=== PATIENT | male | born 1945 | race Caucasian/White ===

== ENCOUNTER → 2023-01-27 | Outpatient (CLI) | payer MEDICARE, OTHER ==
--- NOTE | 2023-01-27 19:49 | Diagnostic Imaging Report ---
INDICATION: Shortness of breath, chest pain. FINDINGS: The lungs are clear. No failure, effusion or pneumothorax. IMPRESSION: Normal 2 view chest. Dictated by: Dictated on workstation # [id number]
== END ==
LOC: RAD FS 14:46
PROVIDERS: ATTEND Nurse Practitioner Family
DX: R06.02 Shortness of breath (principal); R07.9 Chest pain, unspecified; I10 Essential (primary) hypertension
CPT/HCPCS: 71046